=== PATIENT | female | born 1975 ===

== ENCOUNTER 2022-06-21 11:51 | Observation (INO) ==
[~2022-06-21 11:51] MED LIST: Naloxone 0.4 mg VIAL 0.4 mg/ml 1 ml VIAL IV PUSH PRN
[2022-06-21] MEDS ORDERED: Clindamycin 900 MG/50 **NS BAG 900 MG/50 ML BAG IV ONE (12:00)
[2022-06-21] MEDS ORDERED: oxyCODONE SR 10 mg TAB ONE (12:03)
[2022-06-21] MEDS ORDERED: Ondansetron 4 mg VIAL 2 MG/ML 2 ml VIAL ONE (12:04)
[2022-06-21] MEDS ORDERED: Scopolamine 1 mg/72hr PATCH ONE (12:04)
[2022-06-21 12:39] LABS: ABS Basophils 0.1 10^3/ul (0-0.2); ABS Eosinophils 0.2 10^3/ul (0-0.6); ABS Lymphocytes 2.1 10^3/ul (1.0-4.8); ABS Monocytes 0.5 10^3/ul (0-0.8); Eosinophil % 1.6 %; Hematocrit 42 % (35-47); Hemoglobin 14.2 g/dL (12.0-16.0); Lymphocyte % 21.2 %; Mean Corpuscular HGB Conc 34 g/dL (31-36); Mean Corpuscular Hemoglobin 29 pg (27-31); Mean Corpuscular Volume 84 fL (80-97); Mean Platelet Volume 9.3 fL (7.4-10.4); Platelet Count 330 10^3/uL (150-450); Red Cell Distribution Width 14 % (10-15); White Blood Count 9.8 10^3/uL (3.5-10.8)
[2022-06-21 12:48] LABS: INR 1.03 (0.88-1.18)
[2022-06-21] MEDS ORDERED: HYDROmorphone PCA 20 MG/20 ML PCA.SYRING PCA SCH (13:00)
[2022-06-21 13:21] LABS: HCG Pregnancy < 0.60 mIU/mL
[2022-06-21] MEDS ORDERED: Lidocaine 1% VIAL 10 MG/ML VIAL 30 ML ONE (13:24)
[2022-06-21] MEDS ORDERED: Iohexol 350 (CONTRAST) 100 ML PAK IV ONE ×2 (13:24→14:01)
[2022-06-21] MEDS ORDERED: Heparin 2 UNITS/ML IVPREMIX 3,000 UNIT/1,500 ML BAG IV ONE (13:24)
[2022-06-21 13:26] LABS: Anion Gap 7 mmol/L (2-11); Blood Urea Nitrogen 7 mg/dL (6-24); CO2 Carbon Dioxide 26 mmol/L (22-32); Calcium 9.3 mg/dL (8.6-10.3); Chloride 104 mmol/L (101-111); Glucose 85 mg/dL (70-100); Potassium 4.1 mmol/L (3.5-5.0); Sodium 137 mmol/L (135-145); eGFR CKD-EPI 96.9 (>60)
[2022-06-21] MEDS ORDERED: fentaNYL 100 mcg/2 ml 50 MCG/ML VIAL ONE (13:32)
[2022-06-21] MEDS ORDERED: Midazolam 5 mg/5 ml VIAL 1 mg/ml 5 ml VIAL (5 mg) ONE (13:32)
[2022-06-21] MEDS ORDERED: nitroGLYCERIN DRIP 25,000 MCG/250 ML BTL ONE ×2 (13:42→13:44)
[2022-06-21] MEDS ORDERED: HYDROmorphone 0.5 MG/0.5 ML SYRINGE ONE ×2 (14:52→15:10)
[2022-06-21] MEDS ORDERED: LORazepam 2 mg VIAL 1 ml IV PUSH PRN (16:28)
[2022-06-21] MEDS ORDERED: Lorazepam PYXIS KEY PRN (16:29)
[2022-06-21] MEDS: NS 0.9% 1,000 ML IV SCH ×2 (17:54→18:52)
[2022-06-21] MEDS: Ondansetron 4 mg VIAL 2 MG/ML 2 ml VIAL IV SCH (18:39)
[2022-06-22] MEDS ORDERED: NS 0.9% 1,000 ML IV SCH
[2022-06-22] MEDS: Ondansetron 4 mg VIAL 2 MG/ML 2 ml VIAL IV SCH ×2 (01:08→07:13)
[2022-06-22] MEDS ORDERED: HYDROcodone/ACETAMIN 5/325 mg TAB PO PRN (09:45)
[2022-06-22] MEDS ORDERED: Ketorolac 10 mg TAB (NF) PO SCH (10:00)
== END 2022-06-22 13:18 | disposition home or self-care (01) ==
LOC: SSU 11:51 → CHICATH 11:51
PROVIDERS: ADMIT Radiology Diagnostic Radiology; ATTEND Radiology Diagnostic Radiology
PROC: ANG.UFE (2022-06-21 13:10)